=== PATIENT | female | born 1975 | race African-American/Black ===

== ENCOUNTER 2016-06-18 18:16 | Emergency (ER) | payer SELFPAY ==
--- NOTE | 2016-06-18 18:54 | ER Document Report ---
ED Medical Screen (RME) - General Stated Complaint: FELL/LEFT SIDE PAIN Mode of Arrival: Ambulatory Information source: Patient Notes: 40 y/o F presents to ED c/o pain to left side of body after fall 3 days ago. Reports lost her footing and fell down 3 steps. Denies loss of consciousness. States noted some hemoptysis today. Denies chest pain or shortness of breath. Also reports genital itching. States condom broke during intercourse 3 days ago and now has itching. Denies vaginal bleeding or discharge. I have greeted and performed a rapid initial assessment of this patient. A comprehensive ED assessment and evaluation of the patient, analysis of test results and completion of the medical decision making process will be conducted by additional ED providers. TRAVEL OUTSIDE OF THE [place] IN LAST 30 DAYS: No - Related Data Allergies/Adverse Reactions: No Known Allergies Allergy (Verified 06/18/16 18:50) Past Medical History Musculoskeltal Medical History: Reports Hx Fibromyalgia Psychiatric Medical History: Reports: Hx Depression Physical Exam - General General appearance: Appears well, Alert In distress: None - Respiratory Respiratory status: No respiratory distress Breath sounds: Normal
[2016-06-18 19:38] LABS: APPEARANCE,URINE CLOUDY; BILIRUBIN,URINE NEGATIVE (NEGATIVE); GLUCOSE, URINE NEGATIVE (NEGATIVE); KETONES,URINE TRACE mg/dL (NEGATIVE); LEUKOCYTE ESTERASE,URINE NEGATIVE (NEGATIVE); NITRITE,URINE NEGATIVE (NEGATIVE); PROTEIN,URINE NEGATIVE (NEGATIVE); URINE SPECIFIC GRAVITY 1.025; UROBILINOGEN,URINE NEGATIVE mg/dL (<2.0)
[2016-06-18] MEDS ORDERED: LEVOFLOXACIN 750 MG TABLET PO ONE (20:19)
[2016-06-18] MEDS ORDERED: AZITHROMYCIN 250 MG TABLET PO ONE (20:20)
[2016-06-18 20:21] VITALS: BP 149/98
[2016-06-18] MEDS ORDERED: HYDROCODONE/ACETAMINOPHEN 5-325 MG 6 TAB/DSPK PO PRN (20:22)
--- NOTE | 2016-06-18 20:24 | ER Document Report ---
ED Fall - General Chief Complaint: Fall Stated Complaint: FELL/LEFT SIDE PAIN Time seen by provider: 20:20 Mode of Arrival: Ambulatory Information source: Patient TRAVEL OUTSIDE OF THE [place] IN LAST 30 DAYS: No - HPI Patient complains to provider of: fall down stairs Occurred: Other - 3 days Where: Home Context: Tripped Associated symptoms: None Location of injury/pain: Chest, Neck Quality of pain: Achy Severity: Mild Notes: Patient is a 40-year-old female who presents to the emergency room complaining of pain to her left lower cages and neck after a trip and fall down some stairs in her home approximately 3 days ago, she denies a head injury or loss of consciousness, today she noted that she was coughing up phlegm and there were small specks of blood in it, she denies a fever, no shortness of breath, no nausea, vomiting or diarrhea - Related data Allergies/Adverse Reactions: No Known Allergies Allergy (Verified 06/18/16 18:50) Past Medical History - General Information source: Patient - Social History Smoking Status: Never Smoker Chew tobacco use (# tins/day): No Frequency of alcohol use: None Drug Abuse: None Family History: Reviewed & Not Pertinent Patient has suicidal ideation: No Patient has homicidal ideation: No Renal/ Medical History: Denies: Hx Peritoneal Dialysis Musculoskeltal Medical History: Reports Hx Fibromyalgia Psychiatric Medical History: Reports: Hx Depression Review of Systems - Review of Systems Constitutional: No symptoms reported EENT: No symptoms reported Cardiovascular: No symptoms reported Respiratory: See HPI Gastrointestinal: No symptoms reported Genitourinary: No symptoms reported Female Genitourinary: No symptoms reported Musculoskeletal: See HPI Skin: No symptoms reported Hematologic/Lymphatic: No symptoms reported Neurological/Psychological: No symptoms reported -: Yes All other systems reviewed and negative Physical Exam - Vital signs Vitals: Temp Pulse Resp BP Pulse Ox 98.1 F 102 H 20 123/88 H 97 06/18/16 18:50 06/18/16 18:50 06/18/16 18:50 06/18/16 18:50 06/18/16 18:50 Interpretation: Tachycardic - General General appearance: Appears well, Alert - HEENT Head: Normocephalic, Atraumatic Eyes: Normal Pupils: PERRL - Respiratory Respiratory status: No respiratory distress Chest status: Tender - Tender to palpate in the left anterior lateral lower rib cage Breath sounds: Normal Chest palpation: Normal - Cardiovascular Rhythm: Regular Heart sounds: Normal auscultation Murmur: No - Abdominal Inspection: Normal Distension: No distension Bowel sounds: Normal Tenderness: Nontender Organomegaly: No organomegaly - Back Back: Normal, Nontender - Extremities General upper extremity: Normal inspection, Nontender, Normal color, Normal ROM , Normal temperature General lower extremity: Normal inspection, Nontender, Normal color, Normal ROM , Normal temperature, Normal weight bearing. No: Margareth's sign - Neurological Neuro grossly intact: Yes Cognition: Normal Orientation: AAOx4 [place] Coma Scale Eye Opening: Spontaneous [place] Coma Scale Verbal: Oriented [place] Coma Scale Motor: Obeys Commands [place] Coma Scale Total: 15 Speech: Normal Motor strength normal: LUE, RUE, LLE, RLE Sensory: Normal - Psychological Associated symptoms: Normal affect, Normal mood - Skin Skin Temperature: Warm Skin Moisture: Dry Skin Color: Normal Course - Re-evaluation Re-evalutation: 06/19/16 01:17 Patient with tenderness to palpate in the left lower rib cage, and tenderness in the left paraspinal musculature of the cervical spine, imaging is consistent with pneumonia, patient was informed of this finding and started on antibiotics , provided with pain medication and information for follow-up, advised to return if symptoms worsen, patient acknowledges understanding and agreement with this plan 06/19/16 01:17 Patient and also mention approximately 3 days ago she was having sexual intercourse and the condom broke, she's been having some mild vaginal itching since then, she denies any lesions, no vaginal discharge, I offered to place patient in room and perform a pelvic exam which she declined at the present time , stating she will give it another day or 2 to see if it gets any better, and return if symptoms worsen - Vital Signs Vital signs: Temp Pulse Resp BP Pulse Ox 98.3 F 96 16 149/98 H 99 06/18/16 20:20 06/18/16 20:20 06/18/16 20:20 06/18/16 20:20 06/18/16 20:20 - Laboratory Laboratory results interpreted by me: 06/18/16 19:00 Urine Ketones TRACE H - Diagnostic Test Radiology reviewed: Image reviewed, Reports reviewed Discharge - Discharge Clinical Impression: Pneumonia Qualifiers: Pneumonia type: due to unspecified organism Laterality: left Lung location: lower lobe of lung Qualified Code(s): J18.1 - Lobar pneumonia, unspecified organism Cervical strain, acute Qualifiers: Encounter type: initial encounter Qualified Code(s): S16.1XXA - Strain of muscle, fascia and tendon at neck level, initial encounter Condition: Stable Disposition: HOME, SELF-CARE Instructions: Pneumonia ([facility]), Neck Injury (Cervical Strain) ([facility]) Additional Instructions: Follow up with your primary care provider in one to 2 days. Return to the emergency room immediately if symptoms worsen or any additional concerns. Prescriptions: Azithromycin [Zithromax 250 mg Tablet] 250 mg PO ASDIR PRN #4 tablet PRN Reason: Fluconazole [Diflucan] 150 mg PO ONCE PRN #1 tablet PRN Reason: Hydrocodone/Acetaminophen [Hydrocodon-Acetaminophen 5-325] 1 each PO Q6 #20 tablet
== END 2016-06-18 20:29 | disposition home or self-care (01) ==
LOC: ER 18:16
DX: S16.1XXA Strain of muscle, fascia and tendon at neck level, initial encounter (principal); J18.1 Lobar pneumonia, unspecified organism; R52 Pain, unspecified; R07.9 Chest pain, unspecified; M54.2 Cervicalgia; W19.XXXA Unspecified fall, initial encounter
CPT/HCPCS: 71020; 81001; 81025; 99283